=== PATIENT | female | born 1990 | race Caucasian/White ===

== ENCOUNTER 2022-10-14 08:21 | Emergency (ER) | payer BC ==
[2022-10-14 08:30] VITALS: BP 99/66; PULSE 84; RESP 16; TEMP 98; BMI 20.7
[2022-10-14] MEDS ORDERED: ACETAMINOPHEN 325 MG TABLET (FP) PO ONE (09:04)
[2022-10-14] MEDS ORDERED: ACETAMINOPHEN 325 MG TABLET (FP) ONE (09:13)
[2022-10-14 09:55] LABS: HEMOGLOBIN 13.3 G/dL (10.7-15.3); MCH 30.8 pg (25.7-33.7); MEAN CELL VOLUME 85.5 fl (80-96); MEAN PLT VOLUME 7.9 fl (7.5-11.1); PLATELET COUNT 169.1 10^3/uL (134-434); RBC 4.33 10^6/uL (3.60-5.2); RDW 14.4 % (11.6-15.6); WHITE BLOOD COUNT 7.1 10^3/uL (4.0-10.8)
[2022-10-14 10:01] LABS: ALBUMIN 4.1 g/dl (3.4-5.0); BILIRUBIN,TOTAL 0.5 mg/dl (0.2-1); CALCIUM 9.1 mg/dl (8.5-10); CREATININE 0.3 mg/dl (0.55-1.3); TOT PROT 7.1 g/dl (6.4-8.2)
[2022-10-14 11:59] LABS: PLATELET ESTIMATE ADEQUATE
== END 2022-10-14 11:22 | disposition home or self-care (01) ==
LOC: FER 08:21
DX: O26.892 Other specified pregnancy related conditions, second trimester (principal); R10.2 Pelvic and perineal pain; Z3A.14 14 weeks gestation of pregnancy
CPT/HCPCS: 36415; 76801-TC; 80053; 81003; 83605; 83690; 84702; 85027; 86850; 86900; 86901; 87086; 99285-25

== ENCOUNTER 2023-06-19 18:36 | Emergency (ER) | payer BC ==
[2023-06-19 19:04] VITALS: BP 115/77; PULSE 68; RESP 18; TEMP 98.8; BMI 24.1
[2023-06-19 19:55] LABS: HEMATOCRIT 39.2 % (32.4-45.2); HEMOGLOBIN 13.2 G/dL (10.7-15.3); MCHC 33.8 g/dl (32.0-36.0); MEAN CELL VOLUME 88.8 fl (80-96); MEAN PLT VOLUME 8.2 fl (7.5-11.1); PLATELET COUNT 205.7 10^3/uL (134-434); RBC 4.42 10^6/uL (3.60-5.2); RDW 13.7 % (11.6-15.6); WHITE BLOOD COUNT 6.9 10^3/uL (4.0-10.8)
[2023-06-19 20:03] LABS: PLATELET ESTIMATE ADEQUATE
[2023-06-19 20:16] LABS: ALBUMIN 4.7 g/dl (3.4-5.0); BILIRUBIN,TOTAL 0.3 mg/dl (0.2-1); CREATININE 0.7 mg/dl (0.6-1.3); POTASSIUM 3.5 mmol/L (3.5-5.1); TOT PROT 7.1 g/dl (6.4-8.2)
[2023-06-19] MEDS ORDERED: ACETAMINOPHEN 1000 MG/100 ML BAG IVPB ONE (21:11)
[2023-06-19] MEDS ORDERED: ACETAMINOPHEN INJECTION 100 ML IVPB ONE (21:14)
[2023-06-19] MEDS ORDERED: KETOROLAC TROMETHAMINE 30 MG/1 ML VIAL IVPUSH ONE (22:13)
[2023-06-19] MEDS ORDERED: KETOROLAC TROMETHAMINE 15 MG/ML VIAL ONE (22:14)
== END 2023-06-19 22:50 | disposition home or self-care (01) ==
LOC: FER 18:36
PROC: 3E033NZ Introduction of Analgesics, Hypnotics, Sedatives into Peripheral Vein, Percutaneous Approach (ICD-10-PCS; principal; 2023-06-19)
PROC: 3E0333Z Introduction of Anti-inflammatory into Peripheral Vein, Percutaneous Approach (ICD-10-PCS; 2023-06-19)
DX: R10.11 Right upper quadrant pain (principal); R07.89 Other chest pain
CPT/HCPCS: 36415; 71046-TC-FY; 76705-TC; 80053; 81003; 81015; 81025; 85027; 87086; 99285-25